=== PATIENT | female | born 1950 | race Two or more races ===

== ENCOUNTER → 2021-02-01 | Outpatient (CLI) | payer MEDICARE, OTHER ==
[~2021-02-01] MED LIST: IOHEXOL 350 MG/ML 100 ML VIAL. IV ONE
--- NOTE | 2021-02-01 15:36 | RAD ---
CTA CHEST History: Shortness of breath Technique: CT of the chest was performed with intravenous contrast. PE protocol. Maximum intensity pr ojection coronal and sagittal reconstructions were performed. Exposure: One or more of the following individualized dose reduction techniques were utilized for thi s examination: 1. Automated exposure control 2. Adjustment of the mA and/or kV according to patient size 3. Use of iterative reconstruction technique. Comparison: None Findings: Chest: No pulmonary embolism. Mild atheromatous plaque. No aortic aneurysm or dissection. Retropharyn geal course of the common carotid arteries. No pathologic lymphadenopathy. Coronary artery calcificat ions. No consolidation or pleural effusion. No pneumothorax. Elevation the right hemidiaphragm. Mild adjace nt linear atelectasis. Right middle lobe 4 mm pulmonary nodule (series 4 image 66). 3 mm right lower lobe pulmonary nodule ( image 64). 2 mm right lower lobe pulmonary nodule (image 67). 4 mm left upper lobe pulmonary nodule ( image 28). Upper abdomen: The imaged upper abdomen is unremarkable. Bones: No pathologic osseous lesions. Impression: 1. No acute thoracic pathology. 2. Coronary artery calcifications. 3. Small pulmonary nodules. Recommend one-year follow-up if high risk. Electronically signed by: Jeison Leung DO (02/01/2021 3:34 PM) [facility]
== END ==
LOC: CT 14:54
PROVIDERS: ATTEND Family Medicine
DX: I25.10 Atherosclerotic heart disease of native coronary artery without angina pectoris (principal); R91.8 Other nonspecific abnormal finding of lung field; R93.89 Abnormal findings on diagnostic imaging of other specified body structures; R09.89 Other specified symptoms and signs involving the circulatory and respiratory systems; J98.11 Atelectasis
CPT/HCPCS: 71275; Q9967